=== PATIENT | male | born 1965 | race Caucasian/White ===

== ENCOUNTER 2021-05-30 11:52 | Emergency (ER) | payer OTHER ==
[~2021-05-30 11:52] MED LIST: BACTRIM DS TAB1 EACH PO; CIPRO250 MG PO; CLEOCIN300 MG PO; DIFLUCAN 100MG100 MG PO; KEFLEX250 MG PO; NIZORAL CREAM 330 GM TOP
[2021-05-30 13:44] LABS: ALBUMIN 3.6 g/dL (3.4-5.0); BILIRUBIN - TOTAL 0.6 mg/dL (0.2-1.0); BUN/CREAT RATIO (CALC) 13.1 RATIO; CREATININE 1.07 mg/dL (0.67-1.17); POTASSIUM 4.4 mmol/L (3.5-5.1); TOTAL PROTEIN 6.6 g/dL (6.4-8.2)
[2021-05-30 13:47] LABS: BASOPHIL 0.3 % (0-2); EOSINOPHIL 0.8 % (0-5); HCT 46.7 % (42.0-52.0); HGB 16.1 g/dl (13.2-18.0); LYMPHOCYTE 17.8 % (15-48); MCH 34.6 pg (25.0-31.0); MCHC 34.5 g/dL (32.0-36.0); MCV 100.4 fL (78.0-100.0); MONOCYTE 8.8 % (0-12); MPV 9.5 fL (6.0-9.5); NEUTROPHIL 71.7 % (41-80); NRBC 0; PLT 186 K/uL (150-400); RBC 4.65 M/uL (4.70-6.00); WBC 7.1 K/uL (4.0-10.5)
== END 2021-05-30 16:58 | disposition home or self-care (01) ==
LOC: FER 11:52
PROVIDERS: Nurse Practitioner Family
DX: R10.9 Unspecified abdominal pain (principal); R11.2 Nausea with vomiting, unspecified; R91.1 Solitary pulmonary nodule; E11.9 Type 2 diabetes mellitus without complications; Z88.0 Allergy status to penicillin; Z86.711 Personal history of pulmonary embolism; Z86.718 Personal history of other venous thrombosis and embolism; Z79.01 Long term (current) use of anticoagulants; Z79.899 Other long term (current) drug therapy
CPT/HCPCS: 36415; 71045; 80053; 83690; 84484; 85025; J2405; J7030; Q9967

== ENCOUNTER 2021-10-14 21:41 | Emergency (ER) | payer OTHER ==
[2021-10-14 23:11] LABS: BASOPHIL 0.2 % (0-2); EOSINOPHIL 0 % (0-5); HCT 52.4 % (42.0-52.0); HGB 18.3 g/dl (13.2-18.0); LYMPHOCYTE 21.3 % (15-48); MCHC 34.9 g/dL (32.0-36.0); MCV 97.4 fL (78.0-100.0); MONOCYTE 13.8 % (0-12); MPV 9.8 fL (6.0-9.5); NRBC 0; PLT 126 K/uL (150-400); RBC 5.38 M/uL (4.70-6.00); RDW 11.9 % (11.5-14.0); WBC 5.8 K/uL (4.0-10.5)
[2021-10-14 23:33] LABS: ALBUMIN 3.4 g/dL (3.4-5.0); BILIRUBIN - TOTAL 0.9 mg/dL (0.2-1.0); GLOBULIN (CALCULATION) 4.1 g/dL; TOTAL PROTEIN 7.5 g/dL (6.4-8.2)
[2021-10-14 23:52] LABS: CORONAVIRUS 2019 SARS-COV-2 POSITIVE (NEGATIVE); INFLUENZA A NAA NEGATIVE (NEGATIVE)
== END 2021-10-15 02:59 | disposition home or self-care (01) ==
LOC: FER 21:41
PROVIDERS: Internal Medicine
DX: U07.1 COVID-19 (principal); D75.1 Secondary polycythemia; R74.01 Elevation of levels of liver transaminase levels; Z23 Encounter for immunization; Z88.0 Allergy status to penicillin
CPT/HCPCS: 36415; 36600; 80053; 82803; 84145; 85025; M0243; Q0244; U0002

== ENCOUNTER 2022-08-12 20:08 | Emergency (ER) | payer OTHER ==
[2022-08-12 21:40] LABS: BASOPHIL 0.3 % (0-2); EOSINOPHIL 0.3 % (0-5); HCT 49.5 % (42.0-52.0); HGB 17.1 g/dl (13.2-18.0); LYMPHOCYTE 11.7 % (15-48); MCHC 34.5 g/dL (32.0-36.0); MCV 98.4 fL (78.0-100.0); MPV 9.4 fL (6.0-9.5); NEUTROPHIL 72.2 % (41-80); NRBC 0; PLT 216 K/uL (150-400); RBC 5.03 M/uL (4.70-6.00); RDW 12.4 % (11.5-14.0); WBC 10.1 K/uL (4.0-10.5)
[2022-08-12 21:41] LABS: INFLUENZA A NAA NEGATIVE (NEGATIVE)
[2022-08-12 21:46] LABS: CORONAVIRUS 2019 SARS-COV-2 POSITIVE (NEGATIVE)
[2022-08-12 22:00] LABS: POTASSIUM 4.2 mmol/L (3.5-5.1)
[2022-08-12] MEDS ORDERED: PREDNISONE 20MG20 MG PO (22:26)
[2022-08-12] MEDS ORDERED: PAXLOVID 300-11 EACH PO (22:26)
== END 2022-08-12 23:40 | disposition home or self-care (01) ==
LOC: FER 20:08
PROVIDERS: Nurse Practitioner Family
DX: U07.1 COVID-19 (principal); I10 Essential (primary) hypertension; E11.9 Type 2 diabetes mellitus without complications; Z88.0 Allergy status to penicillin
CPT/HCPCS: 36415; 71045; 80048; 85025; J1100; J7030; U0002